=== PATIENT | female | born 1935 | race Caucasian/White ===

== ENCOUNTER 2020-06-23 15:06 | Inpatient (IN) ==
[2020-06-23] MEDS ORDERED: Dexamethasone 4 MG/ML VIAL IVP ONE (15:22)
[2020-06-23] MEDS ORDERED: 0.9 % Sodium Chloride 1,000 ML IVC ONE (15:32)
[2020-06-23] MEDS ORDERED: Ondansetron 4 MG/2 ML VIAL IVP ONE (15:32)
[2020-06-23 15:37] LABS: Basophils % 0.2 %; Hematocrit 35.9 % (35.3-44.9); Immature Granulocytes % 1.4 % (0-4); Lymphocytes # 1.4 K/mcL (0.6-4.6); Lymphocytes % 8.1 %; Mean Corpuscular HGB Conc 33.4 g/dL (31.6-35.5); Mean Corpuscular Hemoglobin 30.8 pg (28.0-33.3); Mean Corpuscular Volume 92.3 fL (83.0-100.0); Mean Platelet Volume 9.8 fL (9.4-12.4); Monocytes # 1.1 K/mcL (0.0-1.3); Monocytes % 6.6 %; Neutrophils # 14.5 K/mcL (1.6-8.9); Platelet Count 308 K/mcL (140-400); Red Blood Count 3.89 M/mcL (3.82-4.97); Red Cell Distribution Width 13.1 % (11.5-14.5); Segmented Neutrophils % 83.7 %; White Blood Count 17.4 K/mcL (4.3-11.1)
[2020-06-23 15:46] LABS: INR 1.2; Prothrombin Time 14.1 Seconds (9.4-12.1)
[2020-06-23 15:48] LABS: Activated Partial Thrombo Time 25.4 Seconds (26.0-36.0)
[2020-06-23 15:58] LABS: Alanine Aminotransferase 23 Units/L (7-52); Albumin 3.8 g/dL (3.5-5.7); Albumin/Globulin Ratio 1.1 (1.1-2.2); Alkaline Phosphatase 114 Units/L (34-104); Aspartate Amino Transferase 47 Units/L (13-39); BUN/Creatinine Ratio 25 (6-26); Bilirubin,Direct 0.2 mg/dL (0.0-0.2); Bilirubin,Indirect 0.4 mg/dL (0.0-1.0); Bilirubin,Total 0.6 mg/dL (0.3-1.0); Blood Urea Nitrogen 29 mg/dL (8-23); C-Reactive Protein 208 mg/L (Less than 10); Carbon Dioxide 18 mEq/L (23-29); Chloride 102 mEq/L (98-107); Globulin 3.5 g/dL (2.4-3.5); Glucose 185 mg/dL (70-105); Lactate Dehydrogenase 316 Units/L (140-271); Magnesium 1.5 mg/dL (1.6-2.6); Osmolality,Calculated 287 (280-300); Phosphorous 2.9 mg/dL (2.7-4.5); Potassium 4.2 mEq/L (3.5-5.1); Sodium 133 mEq/L (136-145); Total Protein 7.3 g/dL (6.4-8.9); Troponin I < 0.03 ng/mL (< 0.04); eGFR For African Americans 55 (> 60); eGFR For Non-African Americans 45 (> 60)
[2020-06-23] MEDS ORDERED: Azithromycin 500 MG in D5% in Water 250 ML IVPB ONE (16:12)
[2020-06-23] MEDS ORDERED: cefTRIAXone 1,000 MG in Water for inj. (sterile) 10 ML IVP ONE (16:12)
[2020-06-23 16:16] LABS: Ferritin 222 ng/mL (10-120)
[2020-06-23] MEDS ORDERED: Magnesium Sulfate 1 GM/102 ML PIGGYBACK IVPB ONE (16:27)
[2020-06-23] MEDS ORDERED: Isovue-370 500 ML BOTTLE IVP ONE (16:29)
[2020-06-23] MEDS ORDERED: Ondansetron 4 MG/2 ML VIAL IVP PRN (17:21)
[2020-06-23] MEDS ORDERED: Naloxone 0.4 MG/ML INJ IVP PRN (17:21)
[2020-06-23] MEDS ORDERED: Ipratropium 1 PUFF INHALER IH PRN (17:24)
[2020-06-23] MEDS ORDERED: *HR* Heparin 5,000 UNIT/ML VIAL IVP PRN ×2 (17:38)
[2020-06-23] MEDS ORDERED: *HR* Heparin 5,000 UNIT/ML VIAL IVP ONE (17:38)
[2020-06-23] MEDS ORDERED: Dextrose Gel 15 GM/37.5 ML TUBE PO PRN ×2 (19:16)
[2020-06-23] MEDS ORDERED: D5% in Water 1,000 ML IVC PRN (19:16)
[2020-06-23] MEDS ORDERED: *HR* Dextrose 50 % in Water (Vial) 50 ML VIAL IVP PRN (19:16)
[2020-06-23 19:19] LABS: Hematocrit 34.4 % (35.3-44.9); Hemoglobin 11.4 g/dL (11.5-15.4); Mean Corpuscular HGB Conc 33.1 g/dL (31.6-35.5); Mean Corpuscular Hemoglobin 30.5 pg (28.0-33.3); Mean Platelet Volume 9.8 fL (9.4-12.4); Platelet Count 263 K/mcL (140-400); Red Blood Count 3.74 M/mcL (3.82-4.97); White Blood Count 15.5 K/mcL (4.3-11.1)
[2020-06-23 19:27] LABS: Activated Partial Thrombo Time 25.8 Seconds (26.0-36.0)
[2020-06-23] MEDS: Heparin 25,000UNIT/250ML 1/2NS 25,000 UNIT/250 ML IV.SOLN IVC SCH (19:27)
[2020-06-23 20:00] LABS: ABG Base Excess -5 mEq/L (-2 to 3); ABG HCO3 19 mEq/L (21-27); ABG Oxygen Saturation 92 % (95-98); ABG PCO2 31 mmHg (35-45); ABG PO2 62 mmHg (85-104); ABG TCO2 20 mEq/L (20-26)
[2020-06-23] MEDS ORDERED: Remdesivir 200 MG in 0.9 % Sodium Chloride 210 ML IVPB ONE (20:00)
[2020-06-23] MEDS: Furosemide 40 MG/4 ML VIAL IVP SCH (21:20)
[2020-06-23 21:40] LABS: INR 1.3; Prothrombin Time 14.6 Seconds (9.4-12.1)
[2020-06-24] MEDS ORDERED: Insulin LISPRO 300 UNITS/3 ML VIAL SQ SCH
[2020-06-24 02:49] LABS: Fibrinogen 716 mg/dL (169-393)
[2020-06-24 02:50] LABS: D-Dimer 1193 ng/mLFEU (0-500)
[2020-06-24] MEDS: Furosemide 40 MG/4 ML VIAL IVP SCH ×2 (08:39→15:44)
[2020-06-24] MEDS: Dexamethasone 4 MG/ML VIAL IVP SCH (08:40)
[2020-06-24 09:13] LABS: Estimated Average Glucose 186 mg/dl
[2020-06-24] MEDS: Insulin LISPRO 300 UNITS/3 ML VIAL SQ SCH ×4 (09:13→20:26)
[2020-06-24 14:59] LABS: Basophils % 0.3 %; Hematocrit 33.7 % (35.3-44.9); Hemoglobin 11.2 g/dL (11.5-15.4); Lymphocytes # 0.9 K/mcL (0.6-4.6); Lymphocytes % 5.8 %; Mean Corpuscular HGB Conc 33.2 g/dL (31.6-35.5); Mean Corpuscular Hemoglobin 30.5 pg (28.0-33.3); Mean Corpuscular Volume 91.8 fL (83.0-100.0); Mean Platelet Volume 10.2 fL (9.4-12.4); Monocytes # 0.6 K/mcL (0.0-1.3); Monocytes % 3.5 %; Platelet Count 311 K/mcL (140-400); Red Blood Count 3.67 M/mcL (3.82-4.97); Red Cell Distribution Width 13.2 % (11.5-14.5); Segmented Neutrophils % 88.4 %; White Blood Count 15.8 K/mcL (4.3-11.1)
[2020-06-24 15:30] LABS: Alanine Aminotransferase 20 Units/L (7-52); Albumin 3.3 g/dL (3.5-5.7); Alkaline Phosphatase 110 Units/L (34-104); Aspartate Amino Transferase 36 Units/L (13-39); BUN/Creatinine Ratio 33 (6-26); Bilirubin,Total 0.3 mg/dL (0.3-1.0); Blood Urea Nitrogen 33 mg/dL (8-23); Calcium 8.3 mg/dL (8.6-10.3); Carbon Dioxide 20 mEq/L (23-29); Chloride 108 mEq/L (98-107); Globulin 3.2 g/dL (2.4-3.5); Glucose 204 mg/dL (70-105); Osmolality,Calculated 299 (280-300); Potassium 4.3 mEq/L (3.5-5.1); Sodium 138 mEq/L (136-145); Total Protein 6.5 g/dL (6.4-8.9); eGFR For African Americans > 60 (> 60); eGFR For Non-African Americans 53 (> 60)
[2020-06-24] MEDS: cefTRIAXone 1,000 MG in Water for inj. (sterile) 10 ML IVP SCH (15:44)
[2020-06-24] MEDS: Azithromycin 500 MG in 0.9 % Sodium Chloride 250 ML IVPB SCH (15:44)
[2020-06-24] MEDS: Spironolactone 25 MG TABLET PO SCH (17:25)
[2020-06-24] MEDS: Ipratropium 1 PUFF INHALER IH SCH ×2 (17:32→22:21)
[2020-06-24] MEDS: Remdesivir 100 MG in 0.9 % Sodium Chloride 230 ML IVPB SCH (20:04)
[2020-06-24] MEDS: Heparin 25,000UNIT/250ML 1/2NS 25,000 UNIT/250 ML IV.SOLN IVC SCH (21:29)
[2020-06-25 03:10] LABS: Heparin anti-factor XA UFH 0.72 IU/mL (0.30-0.70)
[2020-06-25 03:25] LABS: Calcium 8.5 mg/dL (8.6-10.3); Magnesium 1.9 mg/dL (1.6-2.6); Potassium 4.2 mEq/L (3.5-5.1)
[2020-06-25] MEDS: Ipratropium 1 PUFF INHALER IH SCH ×4 (03:42→20:36)
[2020-06-25 04:47] LABS: Basophils # 0.1 K/mcL (0.0-0.2); Basophils % 0.4 %; Hematocrit 36.6 % (35.3-44.9); Hemoglobin 11.7 g/dL (11.5-15.4); Immature Granulocytes % 2.7 % (0-4); Lymphocytes # 1.3 K/mcL (0.6-4.6); Lymphocytes % 8.5 %; Mean Corpuscular Hemoglobin 30.9 pg (28.0-33.3); Mean Corpuscular Volume 96.6 fL (83.0-100.0); Mean Platelet Volume 10.5 fL (9.4-12.4); Monocytes # 0.9 K/mcL (0.0-1.3); Monocytes % 5.6 %; Platelet Count 366 K/mcL (140-400); Red Blood Count 3.79 M/mcL (3.82-4.97); Red Cell Distribution Width 13.3 % (11.5-14.5); Segmented Neutrophils % 82.8 %; White Blood Count 15.8 K/mcL (4.3-11.1)
[2020-06-25 08:19] LABS: Albumin 3.4 g/dL (3.5-5.7); Bilirubin,Indirect 0.3 mg/dL (0.0-1.0); Bilirubin,Total 0.3 mg/dL (0.3-1.0); Globulin 3.3 g/dL (2.4-3.5); Total Protein 6.7 g/dL (6.4-8.9)
[2020-06-25] MEDS: Insulin LISPRO 300 UNITS/3 ML VIAL SQ SCH ×4 (08:46→19:41)
[2020-06-25] MEDS: Dexamethasone 4 MG/ML VIAL IVP SCH (08:52)
[2020-06-25] MEDS: Furosemide 40 MG/4 ML VIAL IVP SCH ×2 (08:52→16:17)
[2020-06-25] MEDS: amLODIPine 5 MG TABLET PO SCH (08:53)
[2020-06-25] MEDS: Spironolactone 25 MG TABLET PO SCH (08:53)
[2020-06-25] MEDS ORDERED: *HR* Enoxaparin 40 MG/0.4 ML SYRINGE SQ SCH ×2 (09:00→21:00)
[2020-06-25] MEDS: Azithromycin 500 MG in 0.9 % Sodium Chloride 250 ML IVPB SCH (16:16)
[2020-06-25] MEDS: cefTRIAXone 1,000 MG in Water for inj. (sterile) 10 ML IVP SCH (16:17)
[2020-06-25] MEDS: *HR* Enoxaparin 40 MG/0.4 ML SYRINGE SQ SCH (19:41)
[2020-06-25] MEDS: Remdesivir 100 MG in 0.9 % Sodium Chloride 230 ML IVPB SCH (20:29)
[2020-06-26] MEDS: Ipratropium 1 PUFF INHALER IH SCH ×4 (03:38→19:55)
[2020-06-26] MEDS: amLODIPine 5 MG TABLET PO SCH (08:06)
[2020-06-26] MEDS: *HR* Enoxaparin 40 MG/0.4 ML SYRINGE SQ SCH ×2 (08:06→20:35)
[2020-06-26] MEDS: Dexamethasone Sodium Phos/PF 10 MG/ML VIAL IVP SCH (08:07)
[2020-06-26] MEDS: Furosemide 20 MG/2 ML VIAL IVP SCH (08:07)
[2020-06-26] MEDS: Insulin LISPRO 300 UNITS/3 ML VIAL SQ SCH ×4 (08:29→20:35)
[2020-06-26 10:19] LABS: Hematocrit 36.8 % (35.3-44.9); Hemoglobin 12.1 g/dL (11.5-15.4); INR 1.4; Mean Corpuscular HGB Conc 32.9 g/dL (31.6-35.5); Mean Corpuscular Volume 94.4 fL (83.0-100.0); Mean Platelet Volume 10.2 fL (9.4-12.4); Platelet Count 442 K/mcL (140-400); Prothrombin Time 15.7 Seconds (9.4-12.1); Red Cell Distribution Width 13.3 % (11.5-14.5); White Blood Count 15.9 K/mcL (4.3-11.1)
[2020-06-26 10:34] LABS: Alanine Aminotransferase 21 Units/L (7-52); Albumin 3.3 g/dL (3.5-5.7); Albumin/Globulin Ratio 0.9 (1.1-2.2); Alkaline Phosphatase 130 Units/L (34-104); Aspartate Amino Transferase 30 Units/L (13-39); BUN/Creatinine Ratio 39 (6-26); Bilirubin,Total 0.5 mg/dL (0.3-1.0); Blood Urea Nitrogen 41 mg/dL (8-23); C-Reactive Protein 98 mg/L (Less than 10); Calcium 8.7 mg/dL (8.6-10.3); Carbon Dioxide 21 mEq/L (23-29); Chloride 105 mEq/L (98-107); Globulin 3.5 g/dL (2.4-3.5); Glucose 204 mg/dL (70-105); Lactate Dehydrogenase 406 Units/L (140-271); Magnesium 1.5 mg/dL (1.6-2.6); Osmolality,Calculated 308 (280-300); Phosphorous 3.8 mg/dL (2.7-4.5); Potassium 3.7 mEq/L (3.5-5.1); Sodium 141 mEq/L (136-145); Total Protein 6.8 g/dL (6.4-8.9); eGFR For African Americans > 60 (> 60); eGFR For Non-African Americans 50 (> 60)
[2020-06-26 10:49] LABS: Ferritin 228 ng/mL (10-120)
[2020-06-26 10:54] LABS: Activated Partial Thrombo Time 26.6 Seconds (26.0-36.0)
[2020-06-26] MEDS: cefTRIAXone 1,000 MG in Water for inj. (sterile) 10 ML IVP SCH (17:56)
[2020-06-26] MEDS: Azithromycin 500 MG in 0.9 % Sodium Chloride 250 ML IVPB SCH (17:57)
[2020-06-26] MEDS: Remdesivir 100 MG in 0.9 % Sodium Chloride 230 ML IVPB SCH (20:09)
[2020-06-27] MEDS ORDERED: 0.9 % Sodium Chloride 250 ML ONE (03:04)
[2020-06-27] MEDS: Melatonin 3 MG TABLET PO PRN ×2 (03:26→21:02)
[2020-06-27] MEDS: Ipratropium 1 PUFF INHALER IH SCH ×4 (03:35→22:24)
[2020-06-27 07:39] LABS: Hematocrit 36.2 % (35.3-44.9); Hemoglobin 11.9 g/dL (11.5-15.4); Mean Corpuscular HGB Conc 32.9 g/dL (31.6-35.5); Mean Corpuscular Hemoglobin 30.4 pg (28.0-33.3); Mean Corpuscular Volume 92.6 fL (83.0-100.0); Mean Platelet Volume 9.9 fL (9.4-12.4); Platelet Count 440 K/mcL (140-400); Red Blood Count 3.91 M/mcL (3.82-4.97); Red Cell Distribution Width 13.3 % (11.5-14.5); White Blood Count 16.8 K/mcL (4.3-11.1)
[2020-06-27 07:58] LABS: BUN/Creatinine Ratio 44 (6-26); Blood Urea Nitrogen 39 mg/dL (8-23); Calcium 8.7 mg/dL (8.6-10.3); Carbon Dioxide 25 mEq/L (23-29); Chloride 107 mEq/L (98-107); Glucose 222 mg/dL (70-105); Magnesium 2.3 mg/dL (1.6-2.6); Osmolality,Calculated 306 (280-300); Phosphorous 3.5 mg/dL (2.7-4.5); Potassium 4.1 mEq/L (3.5-5.1); Sodium 140 mEq/L (136-145); eGFR For African Americans > 60 (> 60); eGFR For Non-African Americans > 60 (> 60)
[2020-06-27] MEDS: amLODIPine 5 MG TABLET PO SCH (09:17)
[2020-06-27] MEDS: Dexamethasone Sodium Phos/PF 10 MG/ML VIAL IVP SCH (09:17)
[2020-06-27] MEDS: Furosemide 20 MG/2 ML VIAL IVP SCH (09:17)
[2020-06-27] MEDS: Insulin LISPRO 300 UNITS/3 ML VIAL SQ SCH ×4 (09:19→22:00)
[2020-06-27] MEDS: *HR* Enoxaparin 40 MG/0.4 ML SYRINGE SQ SCH ×2 (09:20→21:02)
[2020-06-27] MEDS ORDERED: Insulin DETEMIR 100 UNIT/ML X5UNITS SQ SCH (13:15)
[2020-06-27 14:59] LABS: Albumin 3.4 g/dL (3.5-5.7); Albumin/Globulin Ratio 0.9 (1.1-2.2); Bilirubin,Direct 0.1 mg/dL (0.0-0.2); Bilirubin,Indirect 0.3 mg/dL (0.0-1.0); Bilirubin,Total 0.4 mg/dL (0.3-1.0); Globulin 3.7 g/dL (2.4-3.5); Total Protein 7.1 g/dL (6.4-8.9)
[2020-06-27] MEDS: Azithromycin 500 MG in 0.9 % Sodium Chloride 250 ML IVPB SCH (17:24)
[2020-06-27] MEDS: cefTRIAXone 1,000 MG in Water for inj. (sterile) 10 ML IVP SCH (17:25)
[2020-06-27] MEDS: Furosemide 40 MG/4 ML VIAL IVP SCH (21:01)
[2020-06-27] MEDS: Remdesivir 100 MG in 0.9 % Sodium Chloride 230 ML IVPB SCH (21:03)
[2020-06-27] MEDS ORDERED: *HR* LORazepam 2 MG/ML VIAL IVP ONE (21:47)
[2020-06-28] MEDS: Ipratropium 1 PUFF INHALER IH SCH ×6 (03:55→20:02)
[2020-06-28 07:40] LABS: Hematocrit 37.4 % (35.3-44.9); Hemoglobin 12.1 g/dL (11.5-15.4); Mean Corpuscular HGB Conc 32.4 g/dL (31.6-35.5); Mean Corpuscular Hemoglobin 30.4 pg (28.0-33.3); Mean Platelet Volume 9.8 fL (9.4-12.4); Platelet Count 450 K/mcL (140-400); Red Blood Count 3.98 M/mcL (3.82-4.97); Red Cell Distribution Width 13.2 % (11.5-14.5); White Blood Count 19.7 K/mcL (4.3-11.1)
[2020-06-28 07:54] LABS: Activated Partial Thrombo Time 28.5 Seconds (26.0-36.0)
[2020-06-28 08:25] LABS: Alanine Aminotransferase 21 Units/L (7-52); Albumin 3.2 g/dL (3.5-5.7); Albumin/Globulin Ratio 0.9 (1.1-2.2); Alkaline Phosphatase 138 Units/L (34-104); Aspartate Amino Transferase 24 Units/L (13-39); BUN/Creatinine Ratio 50 (6-26); Bilirubin,Total 0.4 mg/dL (0.3-1.0); Blood Urea Nitrogen 46 mg/dL (8-23); Calcium 8.6 mg/dL (8.6-10.3); Carbon Dioxide 27 mEq/L (23-29); Chloride 105 mEq/L (98-107); Globulin 3.6 g/dL (2.4-3.5); Glucose 242 mg/dL (70-105); Lactate Dehydrogenase 485 Units/L (140-271); Magnesium 1.9 mg/dL (1.6-2.6); Osmolality,Calculated 310 (280-300); Phosphorous 3.2 mg/dL (2.7-4.5); Potassium 4.5 mEq/L (3.5-5.1); Sodium 140 mEq/L (136-145); Total Protein 6.8 g/dL (6.4-8.9); eGFR For African Americans > 60 (> 60); eGFR For Non-African Americans 58 (> 60)
[2020-06-28 08:43] LABS: Ferritin 203 ng/mL (10-120)
[2020-06-28] MEDS: lisinopriL 20 MG TABLET PO SCH (09:14)
[2020-06-28] MEDS: Furosemide 40 MG/4 ML VIAL IVP SCH ×2 (09:14→15:53)
[2020-06-28] MEDS: Dexamethasone Sodium Phos/PF 10 MG/ML VIAL IVP SCH (09:14)
[2020-06-28] MEDS: Insulin LISPRO 300 UNITS/3 ML VIAL SQ SCH ×4 (09:15→20:25)
[2020-06-28] MEDS: *HR* Enoxaparin 40 MG/0.4 ML SYRINGE SQ SCH (09:16)
[2020-06-28] MEDS: Insulin DETEMIR 100 UNIT/ML X5UNITS SQ SCH (09:17)
[2020-06-28 09:38] LABS: C-Reactive Protein 113 mg/L (Less than 10)
[2020-06-28 10:44] LABS: ABG Base Excess 1 mEq/L (-2 to 3); ABG HCO3 25 mEq/L (21-27); ABG Oxygen Saturation 95 % (95-98); ABG PCO2 35 mmHg (35-45); ABG PH 7.46 pH Units (7.32-7.45); ABG PO2 69 mmHg (85-104); ABG TCO2 26 mEq/L (20-26)
[2020-06-28] MEDS ORDERED: *HR* Heparin 5,000 UNIT/ML VIAL IVP PRN ×2 (11:14)
[2020-06-28 14:10] LABS: Heparin anti-factor XA UFH 0.36 IU/mL (0.30-0.70); INR 1.3; Prothrombin Time 15.2 Seconds (9.4-12.1)
[2020-06-28] MEDS: cefTRIAXone 1,000 MG in Water for inj. (sterile) 10 ML IVP SCH (15:48)
[2020-06-28] MEDS: Azithromycin 500 MG in 0.9 % Sodium Chloride 250 ML IVPB SCH (15:49)
[2020-06-28] MEDS: Heparin 25,000UNIT/250ML 1/2NS 25,000 UNIT/250 ML IV.SOLN IVC SCH (15:52)
[2020-06-28] MEDS: Remdesivir 100 MG in 0.9 % Sodium Chloride 230 ML IVPB SCH (20:00)
[2020-06-28] MEDS: Melatonin 3 MG TABLET PO PRN (20:03)
[2020-06-28] MEDS: traZODone 50 MG TABLET PO PRN (23:59)
[2020-06-29] MEDS: Ipratropium 1 PUFF INHALER IH SCH ×6 (03:48→20:11)
[2020-06-29 07:27] LABS: Basophils # 0.1 K/mcL (0.0-0.2); Basophils % 0.5 %; Hematocrit 36.8 % (35.3-44.9); Hemoglobin 11.7 g/dL (11.5-15.4); Immature Granulocytes % 4.3 % (0-4); Lymphocytes # 1.3 K/mcL (0.6-4.6); Lymphocytes % 7.7 %; Mean Corpuscular HGB Conc 31.8 g/dL (31.6-35.5); Mean Corpuscular HGB Conc 33.3 g/dL (31.6-35.5); Mean Corpuscular Hemoglobin 31.3 pg (28.0-33.3); Mean Corpuscular Volume 94.4 fL (83.0-100.0); Mean Platelet Volume 10.1 fL (9.4-12.4); Mean Platelet Volume 10.2 fL (9.4-12.4); Monocytes # 0.7 K/mcL (0.0-1.3); Monocytes % 4.4 %; Neutrophils # 13.8 K/mcL (1.6-8.9); Platelet Count 444 K/mcL (140-400); Platelet Count 451 K/mcL (140-400); Red Blood Count 3.83 M/mcL (3.82-4.97); Red Cell Distribution Width 13.3 % (11.5-14.5); Segmented Neutrophils % 83.1 %; White Blood Count 16.1 K/mcL (4.3-11.1); White Blood Count 16.6 K/mcL (4.3-11.1)
[2020-06-29 07:41] LABS: Fibrinogen 405 mg/dL (169-393); INR 1.3; Prothrombin Time 15.2 Seconds (9.4-12.1)
[2020-06-29 07:43] LABS: Alanine Aminotransferase 21 Units/L (7-52); Albumin 3.1 g/dL (3.5-5.7); Alkaline Phosphatase 140 Units/L (34-104); Aspartate Amino Transferase 24 Units/L (13-39); BUN/Creatinine Ratio 69 (6-26); Bilirubin,Total 0.4 mg/dL (0.3-1.0); Blood Urea Nitrogen 59 mg/dL (8-23); Calcium 8.5 mg/dL (8.6-10.3); Carbon Dioxide 24 mEq/L (23-29); Chloride 106 mEq/L (98-107); Globulin 3.1 g/dL (2.4-3.5); Glucose 260 mg/dL (70-105); Osmolality,Calculated 316 (280-300); Potassium 4.2 mEq/L (3.5-5.1); Sodium 140 mEq/L (136-145); Total Protein 6.2 g/dL (6.4-8.9); eGFR For African Americans > 60 (> 60); eGFR For Non-African Americans > 60 (> 60)
[2020-06-29 07:45] LABS: Magnesium 1.9 mg/dL (1.6-2.6); Phosphorous 4.2 mg/dL (2.7-4.5)
[2020-06-29] MEDS: Heparin 25,000UNIT/250ML 1/2NS 25,000 UNIT/250 ML IV.SOLN IVC SCH ×2 (07:57→18:11)
[2020-06-29 08:02] LABS: D-Dimer 13916 ng/mLFEU (0-500)
[2020-06-29] MEDS: Insulin LISPRO 300 UNITS/3 ML VIAL SQ SCH ×4 (09:19→20:59)
[2020-06-29] MEDS: Furosemide 40 MG/4 ML VIAL IVP SCH ×2 (09:20→16:47)
[2020-06-29] MEDS: Dexamethasone Sodium Phos/PF 10 MG/ML VIAL IVP SCH (09:20)
[2020-06-29] MEDS: Insulin DETEMIR 100 UNIT/ML X5UNITS SQ SCH ×2 (09:21→20:59)
[2020-06-29] MEDS: lisinopriL 20 MG TABLET PO SCH (09:21)
[2020-06-29] MEDS: Azithromycin 500 MG in 0.9 % Sodium Chloride 250 ML IVPB SCH (16:47)
[2020-06-29] MEDS: cefTRIAXone 1,000 MG in Water for inj. (sterile) 10 ML IVP SCH (16:48)
[2020-06-29] MEDS: Remdesivir 100 MG in 0.9 % Sodium Chloride 230 ML IVPB SCH (20:37)
[2020-06-29] MEDS ORDERED: Insulin DETEMIR 100 UNIT/ML X5UNITS SQ SCH (21:00)
[2020-06-29] MEDS: traZODone 50 MG TABLET PO PRN (22:54)
[2020-06-30 03:30] LABS: Hematocrit 35.7 % (35.3-44.9); Hemoglobin 11.7 g/dL (11.5-15.4); Mean Corpuscular HGB Conc 32.8 g/dL (31.6-35.5); Mean Corpuscular Hemoglobin 30.5 pg (28.0-33.3); Mean Platelet Volume 9.9 fL (9.4-12.4); Platelet Count 471 K/mcL (140-400); Red Blood Count 3.84 M/mcL (3.82-4.97); Red Cell Distribution Width 13.1 % (11.5-14.5); White Blood Count 15.7 K/mcL (4.3-11.1)
[2020-06-30 03:35] LABS: INR 1.3; Prothrombin Time 14.8 Seconds (9.4-12.1)
[2020-06-30] MEDS: Ipratropium 1 PUFF INHALER IH SCH ×7 (03:44→23:50)
[2020-06-30 04:10] LABS: Alanine Aminotransferase 27 Units/L (7-52); Alkaline Phosphatase 142 Units/L (34-104); Aspartate Amino Transferase 26 Units/L (13-39); BUN/Creatinine Ratio 69 (6-26); Bilirubin,Total 0.4 mg/dL (0.3-1.0); Blood Urea Nitrogen 61 mg/dL (8-23); Calcium 8.5 mg/dL (8.6-10.3); Carbon Dioxide 22 mEq/L (23-29); Chloride 103 mEq/L (98-107); Globulin 3.1 g/dL (2.4-3.5); Glucose 182 mg/dL (70-105); Osmolality,Calculated 308 (280-300); Potassium 3.8 mEq/L (3.5-5.1); Sodium 138 mEq/L (136-145); Total Protein 6.1 g/dL (6.4-8.9); eGFR For African Americans > 60 (> 60); eGFR For Non-African Americans > 60 (> 60)
[2020-06-30 04:12] LABS: Magnesium 1.8 mg/dL (1.6-2.6); Phosphorous 3.4 mg/dL (2.7-4.5)
[2020-06-30] MEDS: Insulin LISPRO 300 UNITS/3 ML VIAL SQ SCH ×7 (08:30→20:09)
[2020-06-30] MEDS: lisinopriL 20 MG TABLET PO SCH (08:30)
[2020-06-30] MEDS: Insulin DETEMIR 100 UNIT/ML X5UNITS SQ SCH ×2 (08:30→20:10)
[2020-06-30] MEDS: Furosemide 40 MG/4 ML VIAL IVP SCH ×2 (08:31→17:20)
[2020-06-30] MEDS: Dexamethasone Sodium Phos/PF 10 MG/ML VIAL IVP SCH (08:31)
[2020-06-30] MEDS: cefTRIAXone 1,000 MG in Water for inj. (sterile) 10 ML IVP SCH (15:30)
[2020-06-30] MEDS: Azithromycin 500 MG in 0.9 % Sodium Chloride 250 ML IVPB SCH (15:30)
[2020-06-30] MEDS: Melatonin 3 MG TABLET PO PRN (20:09)
[2020-06-30] MEDS: Remdesivir 100 MG in 0.9 % Sodium Chloride 230 ML IVPB SCH (20:10)
[2020-07-01] MEDS: Heparin 25,000UNIT/250ML 1/2NS 25,000 UNIT/250 ML IV.SOLN IVC SCH (02:02)
[2020-07-01] MEDS: Ipratropium 1 PUFF INHALER IH SCH ×5 (03:17→19:40)
[2020-07-01 04:41] LABS: Hematocrit 37.3 % (35.3-44.9); Hemoglobin 11.8 g/dL (11.5-15.4); Mean Corpuscular HGB Conc 31.6 g/dL (31.6-35.5); Mean Corpuscular Volume 94.9 fL (83.0-100.0); Mean Platelet Volume 10.1 fL (9.4-12.4); Platelet Count 221 K/mcL (140-400); Red Blood Count 3.93 M/mcL (3.82-4.97); Red Cell Distribution Width 13.2 % (11.5-14.5); White Blood Count 12.7 K/mcL (4.3-11.1)
[2020-07-01 04:45] LABS: INR 1.2; Prothrombin Time 14.2 Seconds (9.4-12.1)
[2020-07-01 05:03] LABS: Alanine Aminotransferase 29 Units/L (7-52); Albumin 2.9 g/dL (3.5-5.7); Alkaline Phosphatase 141 Units/L (34-104); Aspartate Amino Transferase 26 Units/L (13-39); BUN/Creatinine Ratio 69 (6-26); Bilirubin,Total 0.3 mg/dL (0.3-1.0); Blood Urea Nitrogen 64 mg/dL (8-23); Calcium 8.3 mg/dL (8.6-10.3); Carbon Dioxide 22 mEq/L (23-29); Chloride 106 mEq/L (98-107); Globulin 2.9 g/dL (2.4-3.5); Glucose 228 mg/dL (70-105); Osmolality,Calculated 310 (280-300); Potassium 3.9 mEq/L (3.5-5.1); Sodium 137 mEq/L (136-145); Total Protein 5.8 g/dL (6.4-8.9); eGFR For African Americans > 60 (> 60); eGFR For Non-African Americans 58 (> 60)
[2020-07-01 05:07] LABS: Magnesium 1.8 mg/dL (1.6-2.6); Phosphorous 3.3 mg/dL (2.7-4.5)
[2020-07-01] MEDS: Insulin DETEMIR 100 UNIT/ML X5UNITS SQ SCH ×2 (08:37→20:09)
[2020-07-01] MEDS: Furosemide 40 MG/4 ML VIAL IVP SCH ×2 (08:37→17:33)
[2020-07-01] MEDS: Dexamethasone Sodium Phos/PF 10 MG/ML VIAL IVP SCH (08:38)
[2020-07-01] MEDS: lisinopriL 20 MG TABLET PO SCH (08:38)
[2020-07-01] MEDS: Insulin LISPRO 300 UNITS/3 ML VIAL SQ SCH ×7 (08:39→20:08)
[2020-07-01] MEDS: Sennosides/Docusate Sodium TABLET PO SCH ×2 (12:13→20:10)
[2020-07-01] MEDS: Remdesivir 100 MG in 0.9 % Sodium Chloride 230 ML IVPB SCH (20:06)
[2020-07-01] MEDS: *HR* Enoxaparin 40 MG/0.4 ML SYRINGE SQ SCH (20:09)
[2020-07-02] MEDS: Ipratropium 1 PUFF INHALER IH SCH ×7 (03:25→23:55)
[2020-07-02 06:52] LABS: INR 1.2; Prothrombin Time 13.8 Seconds (9.4-12.1)
[2020-07-02 06:56] LABS: Hematocrit 36.4 % (35.3-44.9); Hemoglobin 11.9 g/dL (11.5-15.4); Mean Corpuscular HGB Conc 32.7 g/dL (31.6-35.5); Mean Corpuscular Hemoglobin 29.9 pg (28.0-33.3); Mean Corpuscular Volume 91.5 fL (83.0-100.0); Platelet Count 357 K/mcL (140-400); Red Blood Count 3.98 M/mcL (3.82-4.97); Red Cell Distribution Width 13.2 % (11.5-14.5); White Blood Count 16.6 K/mcL (4.3-11.1)
[2020-07-02 07:15] LABS: Alanine Aminotransferase 32 Units/L (7-52); Albumin 2.8 g/dL (3.5-5.7); Alkaline Phosphatase 127 Units/L (34-104); Aspartate Amino Transferase 23 Units/L (13-39); BUN/Creatinine Ratio 67 (6-26); Bilirubin,Total 0.4 mg/dL (0.3-1.0); Blood Urea Nitrogen 71 mg/dL (8-23); Calcium 8.1 mg/dL (8.6-10.3); Carbon Dioxide 28 mEq/L (23-29); Chloride 105 mEq/L (98-107); Globulin 2.8 g/dL (2.4-3.5); Glucose 164 mg/dL (70-105); Osmolality,Calculated 312 (280-300); Sodium 139 mEq/L (136-145); Total Protein 5.6 g/dL (6.4-8.9); eGFR For African Americans > 60 (> 60); eGFR For Non-African Americans 50 (> 60)
[2020-07-02 07:24] LABS: Phosphorous 3.5 mg/dL (2.7-4.5)
[2020-07-02] MEDS: lisinopriL 20 MG TABLET PO SCH (07:39)
[2020-07-02] MEDS: Sennosides/Docusate Sodium TABLET PO SCH (07:39)
[2020-07-02] MEDS: Furosemide 40 MG/4 ML VIAL IVP SCH (07:39)
[2020-07-02] MEDS: Dexamethasone Sodium Phos/PF 10 MG/ML VIAL IVP SCH (07:39)
[2020-07-02] MEDS: Insulin DETEMIR 100 UNIT/ML X5UNITS SQ SCH (07:40)
[2020-07-02] MEDS: *HR* Enoxaparin 40 MG/0.4 ML SYRINGE SQ SCH (07:40)
[2020-07-02] MEDS: Insulin LISPRO 300 UNITS/3 ML VIAL SQ SCH ×7 (07:44→20:10)
[2020-07-02] MEDS ORDERED: Insulin DETEMIR 100 UNIT/ML X5UNITS SQ ONE (14:11)
[2020-07-02] MEDS: traZODone 50 MG TABLET PO PRN (20:43)
[2020-07-02] MEDS: Melatonin 3 MG TABLET PO PRN (20:43)
[2020-07-03] MEDS: Ipratropium 1 PUFF INHALER IH SCH ×5 (03:36→20:03)
[2020-07-03 04:41] LABS: Basophils # 0.1 K/mcL (0.0-0.2); Basophils % 0.3 %; Hematocrit 35.4 % (35.3-44.9); Hemoglobin 11.3 g/dL (11.5-15.4); Immature Granulocytes % 3.4 % (0-4); Lymphocytes # 1.7 K/mcL (0.6-4.6); Lymphocytes % 9.1 %; Mean Corpuscular HGB Conc 31.9 g/dL (31.6-35.5); Mean Corpuscular Hemoglobin 29.5 pg (28.0-33.3); Mean Corpuscular Volume 92.4 fL (83.0-100.0); Mean Platelet Volume 10.2 fL (9.4-12.4); Monocytes % 5.2 %; Neutrophils # 15.6 K/mcL (1.6-8.9); Platelet Count 354 K/mcL (140-400); Red Blood Count 3.83 M/mcL (3.82-4.97); Red Cell Distribution Width 13.5 % (11.5-14.5)
[2020-07-03 05:02] LABS: Alanine Aminotransferase 31 Units/L (7-52); Albumin 2.7 g/dL (3.5-5.7); Alkaline Phosphatase 105 Units/L (34-104); Aspartate Amino Transferase 22 Units/L (13-39); BUN/Creatinine Ratio 72 (6-26); Bilirubin,Total 0.4 mg/dL (0.3-1.0); Blood Urea Nitrogen 73 mg/dL (8-23); Calcium 8.1 mg/dL (8.6-10.3); Carbon Dioxide 26 mEq/L (23-29); Chloride 103 mEq/L (98-107); Globulin 2.6 g/dL (2.4-3.5); Glucose 81 mg/dL (70-105); Osmolality,Calculated 307 (280-300); Potassium 3.7 mEq/L (3.5-5.1); Sodium 138 mEq/L (136-145); Total Protein 5.3 g/dL (6.4-8.9); eGFR For African Americans > 60 (> 60); eGFR For Non-African Americans 52 (> 60)
[2020-07-03 05:07] LABS: Magnesium 1.9 mg/dL (1.6-2.6); Phosphorous 3.4 mg/dL (2.7-4.5)
[2020-07-03] MEDS: Insulin DETEMIR 100 UNIT/ML X5UNITS SQ SCH ×2 (07:22→08:16)
[2020-07-03] MEDS: Sennosides/Docusate Sodium TABLET PO SCH ×3 (07:23→19:54)
[2020-07-03] MEDS: *HR* Enoxaparin 40 MG/0.4 ML SYRINGE SQ SCH ×3 (07:23→19:55)
[2020-07-03] MEDS: Dexamethasone Sodium Phos/PF 10 MG/ML VIAL IVP SCH (07:51)
[2020-07-03] MEDS: lisinopriL 20 MG TABLET PO SCH (07:52)
[2020-07-03] MEDS: Insulin LISPRO 300 UNITS/3 ML VIAL SQ SCH ×7 (08:16→19:58)
[2020-07-03] MEDS: Furosemide 40 MG/4 ML VIAL IVP SCH (11:43)
[2020-07-03] MEDS: Acetaminophen 325 MG TABLET PO PRN (13:54)
[2020-07-03] MEDS: QUEtiapine Fumarate 25 MG TABLET PO SCH (19:54)
[2020-07-03] MEDS ORDERED: Insulin DETEMIR 100 UNIT/ML X5UNITS SQ SCH ×2 (21:00)
[2020-07-03] MEDS ORDERED: traZODone 50 MG TABLET PO SCH (21:00)
[2020-07-04] MEDS: Ipratropium 1 PUFF INHALER IH SCH ×7 (00:04→23:31)
[2020-07-04] MEDS: Remdesivir 100 MG in 0.9 % Sodium Chloride 230 ML IVPB SCH (04:02)
[2020-07-04] MEDS: Insulin LISPRO 300 UNITS/3 ML VIAL SQ SCH ×6 (09:02→21:28)
[2020-07-04] MEDS: Furosemide 40 MG/4 ML VIAL IVP SCH (09:44)
[2020-07-04] MEDS: Dexamethasone Sodium Phos/PF 10 MG/ML VIAL IVP SCH (09:52)
[2020-07-04] MEDS: *HR* Enoxaparin 40 MG/0.4 ML SYRINGE SQ SCH (09:52)
[2020-07-04] MEDS: Sennosides/Docusate Sodium TABLET PO SCH ×2 (09:53→19:56)
[2020-07-04] MEDS: Insulin DETEMIR 100 UNIT/ML X5UNITS SQ SCH (09:53)
[2020-07-04] MEDS: lisinopriL 20 MG TABLET PO SCH (09:53)
[2020-07-04 11:46] LABS: Hemoglobin 12.2 g/dL (11.5-15.4); Mean Corpuscular HGB Conc 33.9 g/dL (31.6-35.5); Mean Corpuscular Hemoglobin 31.2 pg (28.0-33.3); Mean Corpuscular Volume 92.1 fL (83.0-100.0); Mean Platelet Volume 10.1 fL (9.4-12.4); Platelet Count 333 K/mcL (140-400); Red Blood Count 3.91 M/mcL (3.82-4.97); Red Cell Distribution Width 13.6 % (11.5-14.5); White Blood Count 24.2 K/mcL (4.3-11.1)
[2020-07-04 12:24] LABS: BUN/Creatinine Ratio 72 (6-26); Blood Urea Nitrogen 71 mg/dL (8-23); Carbon Dioxide 24 mEq/L (23-29); Chloride 103 mEq/L (98-107); Glucose 203 mg/dL (70-105); Osmolality,Calculated 309 (280-300); Sodium 136 mEq/L (136-145); eGFR For African Americans > 60 (> 60); eGFR For Non-African Americans 54 (> 60)
[2020-07-04] MEDS ORDERED: *HR* Heparin 5,000 UNIT/ML VIAL IVP PRN ×2 (13:32)
[2020-07-04] MEDS ORDERED: *HR* Heparin 5,000 UNIT/ML VIAL IVP ONE (13:32)
[2020-07-04] MEDS: Heparin 25,000UNIT/250ML 1/2NS 25,000 UNIT/250 ML IV.SOLN IVC SCH (14:00)
[2020-07-04] MEDS: Lidocaine Viscous Oral Soln 15 ML SOLUTION MM PRN (18:24)
[2020-07-04] MEDS: QUEtiapine Fumarate 25 MG TABLET PO SCH (19:56)
[2020-07-04 20:50] LABS: Hematocrit 35.6 % (35.3-44.9); Hemoglobin 11.6 g/dL (11.5-15.4); Mean Corpuscular HGB Conc 32.6 g/dL (31.6-35.5); Mean Corpuscular Hemoglobin 29.9 pg (28.0-33.3); Mean Corpuscular Volume 91.8 fL (83.0-100.0); Mean Platelet Volume 10.3 fL (9.4-12.4); Platelet Count 318 K/mcL (140-400); Red Blood Count 3.88 M/mcL (3.82-4.97); Red Cell Distribution Width 13.5 % (11.5-14.5); White Blood Count 14.5 K/mcL (4.3-11.1)
[2020-07-04 21:00] LABS: Heparin anti-factor XA UFH 0.55 IU/mL (0.30-0.70)
[2020-07-04] MEDS ORDERED: Furosemide 40 MG/4 ML VIAL IVP SCH (21:00)
[2020-07-04 21:01] LABS: INR 1.2; Prothrombin Time 13.4 Seconds (9.4-12.1)
[2020-07-05 03:17] LABS: BUN/Creatinine Ratio 72 (6-26); Blood Urea Nitrogen 68 mg/dL (8-23); Calcium 7.9 mg/dL (8.6-10.3); Carbon Dioxide 27 mEq/L (23-29); Chloride 106 mEq/L (98-107); Glucose 105 mg/dL (70-105); Osmolality,Calculated 306 (280-300); Potassium 4.2 mEq/L (3.5-5.1); Sodium 138 mEq/L (136-145); eGFR For African Americans > 60 (> 60); eGFR For Non-African Americans 56 (> 60)
[2020-07-05] MEDS: Ipratropium 1 PUFF INHALER IH SCH ×6 (03:49→23:27)
[2020-07-05] MEDS ORDERED: Furosemide 20 MG TABLET PO SCH (09:00)
[2020-07-05] MEDS: Insulin LISPRO 300 UNITS/3 ML VIAL SQ SCH ×5 (09:13→21:35)
[2020-07-05] MEDS: Sennosides/Docusate Sodium TABLET PO SCH ×2 (09:18→21:08)
[2020-07-05] MEDS: lisinopriL 20 MG TABLET PO SCH (09:19)
[2020-07-05] MEDS: Dexamethasone Sodium Phos/PF 10 MG/ML VIAL IVP SCH (09:19)
[2020-07-05] MEDS: Insulin DETEMIR 100 UNIT/ML X5UNITS SQ SCH ×2 (09:24→11:02)
[2020-07-05] MEDS ORDERED: Vancomycin 1,250 MG/262.5 ML IV.SOLN IVPB SCH (15:00)
[2020-07-05] MEDS: Lidocaine Viscous Oral Soln 15 ML SOLUTION MM PRN (15:28)
[2020-07-05] MEDS: Fluconazole 100 MG TABLET PO SCH (15:28)
[2020-07-05] MEDS: Cefepime HCl 2,000 MG in Water for inj. (sterile) 20 ML IVP SCH (15:29)
[2020-07-05] MEDS: Heparin 25,000UNIT/250ML 1/2NS 25,000 UNIT/250 ML IV.SOLN IVC SCH (15:31)
[2020-07-05] MEDS: Furosemide 60 MG in 0.9 % Sodium Chloride 50 ML IV SCH ×2 (16:17→21:08)
[2020-07-05] MEDS: QUEtiapine Fumarate 25 MG TABLET PO SCH (21:08)
[2020-07-06 03:02] LABS: Hematocrit 34.8 % (35.3-44.9); Hemoglobin 11.6 g/dL (11.5-15.4); Mean Corpuscular HGB Conc 33.3 g/dL (31.6-35.5); Mean Corpuscular Hemoglobin 30.5 pg (28.0-33.3); Mean Corpuscular Volume 91.6 fL (83.0-100.0); Mean Platelet Volume 10.7 fL (9.4-12.4); Platelet Count 292 K/mcL (140-400); Red Cell Distribution Width 13.5 % (11.5-14.5); White Blood Count 18.6 K/mcL (4.3-11.1)
[2020-07-06 03:20] LABS: BUN/Creatinine Ratio 72 (6-26); Blood Urea Nitrogen 71 mg/dL (8-23); Calcium 8.4 mg/dL (8.6-10.3); Carbon Dioxide 27 mEq/L (23-29); Chloride 102 mEq/L (98-107); Glucose 251 mg/dL (70-105); Osmolality,Calculated 311 (280-300); Potassium 4.4 mEq/L (3.5-5.1); Sodium 136 mEq/L (136-145); eGFR For African Americans > 60 (> 60); eGFR For Non-African Americans 54 (> 60)
[2020-07-06] MEDS: Ipratropium 1 PUFF INHALER IH SCH ×6 (03:39→23:17)
[2020-07-06] MEDS: Cefepime HCl 2,000 MG in Water for inj. (sterile) 20 ML IVP SCH ×2 (05:39→17:04)
[2020-07-06] MEDS: Lidocaine Viscous Oral Soln 15 ML SOLUTION MM PRN ×2 (05:40→21:20)
[2020-07-06] MEDS: Fluconazole 100 MG TABLET PO SCH (08:33)
[2020-07-06] MEDS: lisinopriL 20 MG TABLET PO SCH (08:33)
[2020-07-06] MEDS: Dexamethasone Sodium Phos/PF 10 MG/ML VIAL IVP SCH (08:34)
[2020-07-06] MEDS: Sennosides/Docusate Sodium TABLET PO SCH ×2 (08:34→21:20)
[2020-07-06] MEDS: Insulin LISPRO 300 UNITS/3 ML VIAL SQ SCH ×7 (08:35→21:41)
[2020-07-06] MEDS ORDERED: Insulin DETEMIR 100 UNIT/ML X5UNITS SQ SCH (09:00)
[2020-07-06] MEDS: Furosemide 60 MG in 0.9 % Sodium Chloride 50 ML IV SCH ×2 (09:12→21:19)
[2020-07-06] MEDS: Heparin 25,000UNIT/250ML 1/2NS 25,000 UNIT/250 ML IV.SOLN IVC SCH (09:12)
[2020-07-06] MEDS: *HR* Enoxaparin 40 MG/0.4 ML SYRINGE SQ SCH ×2 (14:00→23:08)
[2020-07-06] MEDS ORDERED: *HR* Enoxaparin 40 MG/0.4 ML SYRINGE SQ SCH (21:00)
[2020-07-06] MEDS: QUEtiapine Fumarate 25 MG TABLET PO SCH (21:21)
[2020-07-06] MEDS: Acetaminophen 325 MG TABLET PO PRN (21:21)
[2020-07-07] MEDS: Ipratropium 1 PUFF INHALER IH SCH ×4 (03:36→11:05)
[2020-07-07] MEDS: Lidocaine Viscous Oral Soln 15 ML SOLUTION MM PRN (05:59)
[2020-07-07] MEDS: Cefepime HCl 2,000 MG in Water for inj. (sterile) 20 ML IVP SCH (05:59)
[2020-07-07] MEDS: Sennosides/Docusate Sodium TABLET PO SCH (07:23)
[2020-07-07] MEDS: Dexamethasone Sodium Phos/PF 10 MG/ML VIAL IVP SCH (07:23)
[2020-07-07] MEDS: *HR* Enoxaparin 40 MG/0.4 ML SYRINGE SQ SCH (07:23)
[2020-07-07] MEDS: Fluconazole 100 MG TABLET PO SCH (07:23)
[2020-07-07] MEDS: lisinopriL 20 MG TABLET PO SCH (07:23)
[2020-07-07] MEDS: Furosemide 60 MG in 0.9 % Sodium Chloride 50 ML IV SCH (07:24)
[2020-07-07 08:02] LABS: Calcium 7.9 mg/dL (8.6-10.3); Phosphorous 5.1 mg/dL (2.7-4.5); Potassium 5.4 mEq/L (3.5-5.1)
[2020-07-07] MEDS: Insulin LISPRO 300 UNITS/3 ML VIAL SQ SCH ×2 (08:06)
[2020-07-07] MEDS ORDERED: Pantoprazole 40 MG VIAL IVP ONE (08:25)
[2020-07-07] MEDS ORDERED: Ringers Solution, Lactated 500 ML IVC ONE (08:54)
[2020-07-07] MEDS ORDERED: Ringers Solution, Lactated 1,000 ML ONE (08:56)
[2020-07-07] MEDS ORDERED: Insulin DETEMIR 100 UNIT/ML X5UNITS SQ SCH (09:00)
[2020-07-07] MEDS ORDERED: Haloperidol Lactate 5 MG/ML VIAL IVP ONE (10:10)
[2020-07-07 10:13] LABS: Hematocrit 29.3 % (35.3-44.9); Hemoglobin 9.4 g/dL (11.5-15.4); Mean Corpuscular HGB Conc 32.1 g/dL (31.6-35.5); Mean Corpuscular Hemoglobin 30.7 pg (28.0-33.3); Mean Corpuscular Volume 95.8 fL (83.0-100.0); Mean Platelet Volume 11.4 fL (9.4-12.4); Platelet Count 303 K/mcL (140-400); Red Blood Count 3.06 M/mcL (3.82-4.97); Red Cell Distribution Width 13.8 % (11.5-14.5); White Blood Count 24.8 K/mcL (4.3-11.1)
[2020-07-07 10:14] VITALS: BP 83/52
[2020-07-07] MEDS ORDERED: Pantoprazole 40 MG VIAL IVP SCH (21:00)
[2020-07-08] MEDS ORDERED: Dexamethasone 4 MG/ML VIAL IVP SCH (09:00)
[2020-07-11] MEDS ORDERED: Dexamethasone 4 MG/ML VIAL IVP SCH (09:00)
== END 2020-07-07 13:19 | disposition expired | DRG 871 ==
LOC: 2NENU 15:06 → EMEROOARM 15:06 → SUATTDRO 16:54 → 2NENU 17:49 → SUATTDRO 06-24 17:12
PROVIDERS: ADMIT Pharmacist; ATTEND Internal Medicine